=== PATIENT | male | born 2000 | race Caucasian/White ===

== ENCOUNTER 2018-04-10 03:56 | Emergency (ER) | payer OTHER ==
--- NOTE | 2018-04-10 04:04 | EDPHY ---
H & P Stated Complaint: LUQ Abdominal Pain Time Seen by Provider: 04/10/18 04:02 HPI/ROS: CHIEF COMPLAINT: Left upper quadrant and lower chest pain HISTORY OF PRESENT ILLNESS: Previously healthy 17-year-old male who supplements to fall lot. 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 He does not recall a specific and sense of a more severe fall than the rest or falling onto this area specifically. About 7 days ago started no an intermittent pain in the left lower ribcage and the left upper quadrant, sporadic in nature. It was as if there is 2 different sites of the pain. Either 1 would be at the same time. They would alternate. Typically pretty intense for 10 min then jamari. He noted was be worse when he would move as well. During the day on the , he noted the discomfort to be more notable and there most of the day. That is when he noted some aggravation of the ache when he was taking a breath, particularily deep breaths. He took some Ibuprofen around 6pm. However, tonight it is whole different story. He woke up around 2: 00 a.m. With the pain and simply would go away. This is longest pain as well as the most intense. He notes that is hurts him to take a deep breath he also has a fever that is new in onset as of the wee hours of this morning. He has not had any cough or phlegm or shortness of breath or wheezing. There has been no URI symptomatology or runny nose or scratchy throat or earache. Last BM was P: Worse with deep breathing and movement. Q: Achiness R: Left upper quadrant without radiation to the flank per se S: Mild to moderate T: Ongoing for the last 7 days or since last 3 hr REVIEW OF SYSTEMS: Constitutional: No fever, no chills. Eyes: No discharge. ENT: No sore throat. Cardiovascular: See above Respiratory: See above. Gastrointestinal: No nausea vomiting or diarrhea. See above. Genitourinary: No hematuria or frequency. Musculoskeletal: No back pain. Skin: No rashes. Neurological: No headache. A 10 system review of systems was performed and is negative except for the noted findings in the HPI. Source: Patient Exam Limitations: No limitations - Medical/Surgical History Hx Asthma: No Hx Chronic Respiratory Disease: No Hx Diabetes: No Hx Cardiac Disease: No Hx Renal Disease: No Hx Cirrhosis: No Hx Alcoholism: No Hx Splenectomy or Spleen Trauma: No - Family History Significant Family History: No pertinent family hx - Social History Smoking Status: Never smoked Alcohol Use: None Drug Use: None (Once a week.), Marijuana - Physical Exam Exam: General Appearance: Alert, no distress. Temp is 38, he feels warm to the touch. Normal phonation. No respiratory distress. Eyes: Pupils equal and round no pallor or injection. No icterus ENT, Mouth: Mucous membranes moist Pharynx without erythema or exudate. TM Clear. Neck: No adenopathy. Supple. No JVD. Trachea in midline. Respiratory: There are no retractions, lungs are clear to auscultation. Chest wall: No crepitus, but tender to the palpation along the 9th rib from the AAL to the costal margin Cardiovascular: Regular rate and rhythm, no murmur or rub. Abdomen: Soft tender to the LUQ medial to the AAL, no masses, bowel sounds normal. No rebound or guarding. Neurological: Ox3. No motor weakness. Sensation intact. Gait nl. Skin: Warm and dry, no rashes. Musculoskeletal: No joint swelling. Extremities: No edema. Homans sign negative. No cords. Psychiatric: Normal affect. There is no agitation Constitutional: Initial Vital Signs Temperature (C) 38 C 04/10/18 04:09 Heart Rate 94 04/10/18 04:09 Respiratory Rate 16 04/10/18 04:09 Blood Pressure 139/92 H 04/10/18 04:09 O2 Sat (%) 95 04/10/18 04:09 O2 Delivery Mode Room Air Allergies/Adverse Reactions: No Known Allergies Allergy (Unverified 04/10/18 05:58) Home Medications: Medication Instructions Recorded NK [No Known Home Meds] 04/10/18 Medical Decision Making - Diagnostics Imaging Results: Chest x-ray: Two view chest. Interpreted by me, contemporaneously. Films viewed by me on the PACS system. Normal mediastinum. Normal lung farias. No effusions. Normal chest. Imaging: I viewed and interpreted images myself ED Course/Re-evaluation: His laboratory studies were negative as follows: Negative D-dimer Normal CBC Negative comp panel Negative strep. A given the negative risk factors for DVT/PE as well as a negative diameter the possibility of PE as an underlying cause is essentially <1. He was concerned he upon arrival at about the possibility of a ruptured spleen. I did indicate that if indeed he was in had mono that he be more susceptible. He notes that he occasionally falls while rock climbing but does not recall a sentinel fall per se. He is up off the ground by 10 ft., well below 15 ft. Thus, the prospect of this is ruptured spleen is very low cleared I would be worried if he is having some shoulder blade her shoulder type symptomatology as well. He We conducted shared decision-making section whereby I discussed with him at length the reason why would consider possibility of ruptured spleen as well as risk of diagnostic intervention at this time with the prospect of doing a study further if indeed his symptoms progress. He would prefer to forego a CT scan at this time. Differential Diagnosis: Differential diagnosis includes but is not limited to the following: Pneumothorax, pleurisy, pulmonary embolus, Pneumonia, bronchospasm, Asthma, anxiety, muscle strain, Gastroenteritis, pancreatitis, renal colic, kidney stones, ureterolithiasis, gastritis, mesenteric adenitis. Perc score is 0 as follows: Age > 50 0 HR > 100 0 O2 Sat RA < 95% 0 Hx of DVT/PE 0 Trauma or Surgery, recent 0 Hemoptosis 0 Estrogen Rx 0 Unilateral leg swelling 0 - Data Points Laboratory Results: 04/10/18 04:36 POC Sodium 142 mEq/L mEq/L (135-145) POC Potassium 4.0 mEq/L mEq/L (3.3-5.0) POC Chloride 105.0 mEq/L mEq/L (97-110) POC Total CO2 27 mEq/L mEq/L (22-31) POC BUN 9 mg/dL mg/dL (7-23) POC Creatinine 1.0 mg/dL mg/dL (0.7-1.3) POC Glucose 103 mg/dL H mg/dL (70-100) POC Calcium 9.7 mg/dL mg/dL (8.5-10.4) POC Total Bilirubin 0.9 mg/dL mg/dL (0.1-1.4) POC AST 28 IU/L IU/L (17-59) POC ALT 28 IU/L IU/L (21-72) POC Alk Phosphatase 74 IU/L IU/L (38-126) POC Total Protein 7.1 g/dL g/dL (6.3-8.2) POC Albumin 4.3 g/dL g/dL (3.5-5.0) Point of Care Test Results: CBC CBC Collection Date 04/10/18 CBC Collection Time 04:30 WBC 4.5 RBC 5.49 HGB 17.3 HCT 48.1 PLT 217 Neut # 3.8 Neut 85.1 LYMPH # 0.5 LYMPH 11.1 Other WBC # 0.2 Other WBC 3.8 MCV 87.6 Chemistry 04/10/18 04:36 POC Sodium 142 mEq/L mEq/L (135-145) POC Potassium 4.0 mEq/L mEq/L (3.3-5.0) POC Chloride 105.0 mEq/L mEq/L (97-110) POC Total CO2 27 mEq/L mEq/L (22-31) POC BUN 9 mg/dL mg/dL (7-23) POC Creatinine 1.0 mg/dL mg/dL (0.7-1.3) POC Glucose 103 mg/dL H mg/dL (70-100) POC Calcium 9.7 mg/dL mg/dL (8.5-10.4) POC Total Bilirubin 0.9 mg/dL mg/dL (0.1-1.4) POC AST 28 IU/L IU/L (17-59) POC ALT 28 IU/L IU/L (21-72) POC Alk Phosphatase 74 IU/L IU/L (38-126) POC Total Protein 7.1 g/dL g/dL (6.3-8.2) POC Albumin 4.3 g/dL g/dL (3.5-5.0) D-Dimer D-Dimer Collection Date 04/10/18 D-Dimer Collection Time 04:30 D-Dimer (ng/ml) <100 Strep Strep Throat Swab Collection 04/10/18 Date Strep Throat Swab Swab 05:28 Collection Time Strep Result Not Detected Urine Dip Collection Date 04/10/18 Collection Time 04:20 Specific [place] (1.002-1.030) 1.030 PH (5.0-7.5) 6.5 Leukocytes (Negative) Negative Nitrites (Negative) Negative Protein (Negative) Negative Glucose (Negative) Negative Ketones (Negative) Negative Urobilnogen (0.2-1.0 EU) 0.2 Bilirubin (Negative) Negative Blood (Negative) Negative Departure - Departure Disposition: Home, Routine, Self-Care Clinical Impression: Pleurisy Pharyngitis Qualifiers: Pharyngitis/tonsillitis etiology: unspecified etiology Qualified Code(s): J02.9 - Acute pharyngitis, unspecified Condition: Good Instructions: Pleurisy (ED) Additional Instructions: Call us for the mono results in one hour: Return if you develop new symptoms or the pain does not settle down in 2-3 days. Tylenol and Advil works well together the combination: Tylenol 650 mg and Advil 400 mg every 6 hours as needed for the pain. If the MONO test is Positive, note the following: - Viral Illness - usually goes away on it's own without important consequences such as having to drop out of this semester. - you are not to participate in sports for 6 weeks as the spleen is fragile - you are contagious for the next 2 weeks. Referrals: Patient,NotPresent [Unknown] - As per Instructions
[2018-04-10 06:00] VITALS: BP 128/68
== END 2018-04-10 06:28 | disposition home or self-care (01) ==
LOC: CED 03:56
DX: R09.1 Pleurisy (principal); J02.9 Acute pharyngitis, unspecified
CPT/HCPCS: 71046-PO; 80053-PO